=== PATIENT | male | born 1980 | race Two or more races ===

== ENCOUNTER 2018-06-27 07:49 | Emergency (ER) | payer OTHER ==
[~2018-06-27] VITALS: Ht 203.2 cm; Wt 127.1 kg
[2018-06-27 07:56] VITALS: Ht 203.2 cm; Wt 127.1 kg
[2018-06-27 09:08] VITALS: BP 150/104
== END 2018-06-27 09:31 | disposition home or self-care (01) ==
LOC: ED 07:49
DX: S32.039D Unspecified fracture of third lumbar vertebra, subsequent encounter for fracture with routine healing (principal); X58.XXXD Exposure to other specified factors, subsequent encounter; Z98.890 Other specified postprocedural states